=== PATIENT | female | born 1950 | race Caucasian/White ===

== ENCOUNTER 2021-04-21 08:02 | Emergency (ER) | payer MEDICARE, BC ==
[2021-04-21] MEDS ORDERED: Sodium Chloride 0.9% 10 ML Syringe FLUSH PRN (08:39)
[2021-04-21] MEDS ORDERED: Sodium Chloride 0.9% 1,000 ML IV SCH (08:45)
--- NOTE | 2021-04-21 08:46 | EDM.PDOC ---
ED HPI GENERAL MEDICAL PROBLEM - General Chief Complaint: General Stated Complaint: HIGH CALCIUM Time Seen by Provider: 04/21/21 08:15 Source of Information: Reports: Patient, Family History Limitations: Reports: No Limitations - History of Present Illness INITIAL COMMENTS - FREE TEXT/NARRATIVE: The patient presents with an elevated calcium. The patient has a history of multiple myeloma. She has been on chemo and is in remission. She just moved here from [place]. She has some renal problems and was seeing Dr Loco. He did some labs yesterday and her calcium was elevated and she was told to come here and get it checked. She is not sure of how high it was. She has no fever, chills, chest pain, shortness of breath, abdominal pain, nausea or vomiting. She does have some left flank pain. She does have a slight cough. Onset: Gradual Duration: Day(s): Location: Reports: Back Quality: Reports: Sharp Severity: Moderate Improves with: Reports: Immobilization Worsens with: Reports: Movement Context: Denies: Trauma Associated Symptoms: Reports: No Other Symptoms Knee Pain Score (Numeric/FACES): 4 - Related Data Allergies Allergy/AdvReac Type Severity Reaction Status Date / Time No Known Allergies Allergy Verified 04/21/21 08:18 Home Meds: Home Meds Albuterol Sulfate [Albuterol Sulfate HFA] 1 - 2 puff IH Q4H PRN 04/21/21 [History] Allopurinol [Zyloprim] 300 mg PO DAILY 04/21/21 [History] Calcium Carb/Vitamin D3/Vit K1 [Viactiv 650 mg-12.5 Mcg Chew] 1 tab PO DAILY 04/21/21 [History] Calcium Carbonate [Tums] 1 tab PO DAILY PRN 04/21/21 [History] Cholecalciferol (Vitamin D3) [Vitamin D3] 2,000 units PO DAILY 04/21/21 [Hist ory] Ciclesonide [Alvesco] 160 mcg IH DAILY 04/21/21 [History] Cyanocobalamin (Vitamin B-12) [B-12] 1,000 mcg PO BID 04/21/21 [History] Fluticasone Propionate [Flonase Allergy Relief] 1 spray SAPNA DAILY PRN 04/21/21 [History] Furosemide [Lasix] 20 mg PO DAILY PRN 04/21/21 [History] Gabapentin [Neurontin] 400 mg PO TID 04/21/21 [History] Glucos Sul 2Kcl/MSM/Chond/C/Mn [Glucosamine Chondroitin Cap] 1 cap PO BID 04/21/21 [History] Lenalidomide [Revlimid] 15 mg PO ASDIRECTED 04/21/21 [History] Levothyroxine [Synthroid] 100 mcg PO ACBREAKFAST 04/21/21 [History] Montelukast Sodium 10 mg PO DAILY 04/21/21 [History] Multivitamin [Multi-Day Vitamins] 1 tab PO DAILY 04/21/21 [History] Tumeric/Ging/Auxier/Oreg/Capryl [Candicidal Capsule] 1 cap PO DAILY 04/21/21 [History] amLODIPine Besylate [Amlodipine Besylate] 10 mg PO DAILY 04/21/21 [History] atorvaSTATin [Lipitor] 10 mg PO DAILY 04/21/21 [History] Past Medical History Cardiovascular History: Reports: High Cholesterol, Hypertension, Other (See Below) Other Cardiovascular History: edema Respiratory History: Reports: Asthma Musculoskeletal History: Reports: Arthritis Oncologic (Cancer) History: Reports: Other (See Below) Other Oncologic History: multiple myeloma - Past Surgical History GI Surgical History: Reports: Other (See Below) Other GI Surgeries/Procedures: bile duct surgery Social & Family History - Tobacco Use Tobacco Use Status *Q: Never Tobacco User Second Hand Smoke Exposure: No - Recreational Drug Use Recreational Drug Use: No ED ROS GENERAL - Review of Systems Review Of Systems: See Below Constitutional: Reports: No Symptoms HEENT: Reports: No Symptoms Respiratory: Reports: Cough. Denies: Shortness of Breath Cardiovascular: Reports: No Symptoms Endocrine: Reports: No Symptoms GI/Abdominal: Reports: No Symptoms : Reports: No Symptoms Musculoskeletal: Reports: Back Pain (left flank pain) ED EXAM, GENERAL - Physical Exam Exam: See Below Exam Limited By: No Limitations General Appearance: Alert, No Apparent Distress Ears: Normal External Exam Nose: Normal Inspection Head: Atraumatic, Normocephalic Neck: Normal Inspection Respiratory/Chest: No Respiratory Distress, Lungs Clear, Normal Breath Sounds Cardiovascular: Regular Rate, Rhythm, No Edema, No Murmur GI/Abdominal: Soft, Non-Tender, No Organomegaly, No Mass Back Exam: CVA Tenderness (L) Extremities: Normal Inspection Neurological: Alert, Oriented, No Motor/Sensory Deficits Course - Vital Signs Last Recorded V/S: Last Vital Signs Temp 96.9 F 04/21/21 08:14 Pulse 71 04/21/21 08:14 Resp 16 04/21/21 08:14 BP 151/51 H 04/21/21 08:14 Pulse Ox 97 04/21/21 08:14 - Orders/Labs/Meds Orders: Active Orders 24 hr Category Date Time Status Peripheral IV Care [RC] . DIRECTED Care 04/21/21 08:40 Active CALCIUM, IONIZED, SERUM [REF] Stat Lab 04/21/21 11:12 Ordered Sodium Chloride 0.9% [Normal Saline] 1,000 ml Med 04/21/21 08:45 Active IV ASDIRECTED Sodium Chloride 0.9% [Saline Flush] Med 04/21/21 08:39 Active 10 ml FLUSH ASDIRECTED PRN Peripheral IV Insertion Adult [OM.PC] Stat Oth 04/21/21 08:39 Ordered Medication Orders Sodium Chloride (Normal Saline) 1,000 mls @ 125 mls/hr IV ASDIRECTED AMANDEEP Last Infusion: 04/21/21 10:09 Dose: 999 mls/hr Documented by: Admin: 04/21/21 09:26 Dose: 125 mls/hr Documented by: BYRON Sodium Chloride (Sodium Chloride 0.9% 10 Ml Syringe) 10 ml FLUSH ASDIRECTED PRN PRN Reason: Keep Vein Open Last Admin: 04/21/21 09:26 Dose: 10 ml Documented by: BYRON Labs: Laboratory Tests 04/21/21 04/21/21 04/21/21 Range/Units 09:15 09:15 09:20 WBC 3.36 L (3.98-10.04) K/mm3 RBC 2.94 L (3.98-5.22) M/mm3 Hgb 9.6 L (11.2-15.7) gm/dl Hct 30.9 L (34.1-44.9) % MCV 105.1 H (79.4-94.8) fl MCH 32.7 H (25.6-32.2) pg MCHC 31.1 L (32.2-35.5) g/dl RDW Std Deviation 60.8 H (36.4-46.3) fL Plt Count 112 L (182-369) K/mm3 MPV 10.0 (9.4-12.3) fl Neut % (Auto) 46.4 (34.0-71.1) % Lymph % (Auto) 36.0 (19.3-51.7) % Taney % (Auto) 14.3 H (4.7-12.5) % Eos % (Auto) 1.5 (0.7-5.8) Baso % (Auto) 0.3 (0.1-1.2) % Neut # (Auto) 1.56 (1.56-6.13) K/mm3 Lymph # (Auto) 1.21 (1.18-3.74) K/mm3 Taney # (Auto) 0.48 H (0.24-0.36) K/mm3 Eos # (Auto) 0.05 (0.04-0.36) K/mm3 Baso # (Auto) 0.01 (0.01-0.08) K/mm3 Sodium 143 (136-145) mEq/L Potassium 3.9 (3.5-5.1) mEq/L Chloride 105 (98-107) mEq/L Carbon Dioxide 28 (21-32) mEq/L Anion Gap 13.9 (5-15) BUN 29 H (7-18) mg/dL Creatinine 2.2 H (0.55-1.02) mg/dL Est Cr Clr Drug Dosing 19.12 mL/min Estimated GFR (MDRD) 22 (>60) mL/min BUN/Creatinine Ratio 13.2 L (14-18) Glucose 113 H (70-99) mg/dL Calcium 13.3 H* (8.5-10.1) mg/dL Magnesium 1.5 L (1.8-2.4) mg/dL Total Bilirubin 0.5 (0.2-1.0) mg/dL AST 80 H (15-37) U/L ALT 31 (14-59) U/L Alkaline Phosphatase 58 (46-116) U/L Total Protein 9.1 H (6.4-8.2) g/dl Albumin 3.3 L (3.4-5.0) g/dl Globulin 5.8 gm/dL Albumin/Globulin Ratio 0.6 L (1-2) Lipase 59 L (73-393) U/L Urine Color Light yellow (Yellow) Urine Appearance Clear (Clear) Urine pH 7.0 (5.0-8.0) Ur Specific [place] 1.020 (1.005-1.030) Urine Protein 1+ H (Negative) Urine Glucose (UA) Negative (Negative) Urine Ketones Negative (Negative) Urine Occult Blood Trace-lysed H (Negative) Urine Nitrite Negative (Negative) Urine Bilirubin Negative (Negative) Urine Urobilinogen 0.2 (0.2-1.0) Ur Leukocyte Esterase Trace H (Negative) Urine RBC 5-10 H (0-5) /hpf Urine WBC 5-10 H (0-5) /hpf Ur Squamous Epith Cells 0-5 (0-5) /hpf Urine Bacteria Few (FEW) /hpf Urine Mucus Few (FEW) /hpf Meds: Medications Generic Name Dose Route Start Last Admin Trade Name Freq PRN Reason Stop Dose Admin Sodium Chloride 1,000 mls @ 125 mls/hr 04/21/21 08:45 04/21/21 10:09 Normal Saline IV 999 mls/hr ASDIRECTED AMANDEEP Infusion Sodium Chloride 10 ml 04/21/21 08:39 04/21/21 09:26 Sodium Chloride 0.9% 10 Ml Syringe FLUSH 10 ml ASDIRECTED PRN Administration Keep Vein Open - Re-Assessments/Exams Free Text/Narrative Re-Assessment/Exam: 04/21/21 08:45 I ordered an IV NS at 125ml/hr, labs, UA and a CT of her abdomen and pelvis without contrast to look for a kidney stone. 04/21/21 11:[address] of her abdomen and pelvis shows small findings within the right kidney which are believed to be incidental. No renal calculi, ureteral dilatation or ureteral stone is seen. Diverticuli within the transverse, left and sigmoid regions of the colon. No inflammatory change is seen. Minimal increased stool within the colon is noted. No acte abnormality is appreciated on CT study of the abdomen and pelvis. Her WBC was low at 3.36. Her Hgb is low at 9.6. Her creatinine was elevated at 2.2. Her calcium was elevated at 13.3. Her magnesium is low 1.5. Her AST is elevated at 80. Her lipase is low. I gave her 1L of fluid. She has no symptoms of hypercalcemia. I do not feel she needs to be admitted. I did send out an ionized calcium. I will have her stop her tums and viactive which both contain calcium. I will have her follow up with Kriss Larios on Saturday or Saturday to have her calcium rechecked. Departure - Departure Time of Disposition: 11:30 Disposition: Home, Self-Care 01 Condition: Good Clinical Impression: Hypercalcemia, Renal insufficiency Left low back pain Qualifiers: Chronicity: acute Sciatica presence: without sciatica Qualified Code(s): M54.50 - Low back pain, unspecified - Discharge Information *PRESCRIPTION DRUG MONITORING PROGRAM REVIEWED*: Not Applicable *COPY OF PRESCRIPTION DRUG MONITORING REPORT IN PATIENT MITRA: Not Applicable Referrals: Estephania Larios, SCIENCE INSTRUCTOR [Primary Care Provider] - 1 Week Forms: ED Department Discharge Additional Instructions: Drink plenty of fluids. Stop taking the tums and viactive. Both medicines contain calcium. Have your calcium level rechecked on Saturday or Saturday. Please return if you are worse. Sepsis Event Note (ED) - Evaluation Sepsis Screening Result: No Definite Risk - Focused Exam Vital Signs: Vital Signs Temp Pulse Resp BP Pulse Ox 04/21/21 08:14 96.9 F 71 16 151/51 H 97 - My Orders Last 24 Hours: My Active Orders 04/21/21 08:39 Sodium Chloride 0.9% [Saline Flush] 10 ml FLUSH ASDIRECTED PRN Peripheral IV Insertion Adult [OM.PC] Stat 04/21/21 08:40 Peripheral IV Care [RC] . DIRECTED 04/21/21 08:45 Sodium Chloride 0.9% [Normal Saline] 1,000 ml IV ASDIRECTED 04/21/21 11:12 CALCIUM, IONIZED, SERUM [REF] Stat - Assessment/Plan Last 24 Hours: My Active Orders 04/21/21 08:39 Sodium Chloride 0.9% [Saline Flush] 10 ml FLUSH ASDIRECTED PRN Peripheral IV Insertion Adult [OM.PC] Stat 04/21/21 08:40 Peripheral IV Care [RC] . DIRECTED 04/21/21 08:45 Sodium Chloride 0.9% [Normal Saline] 1,000 ml IV ASDIRECTED 04/21/21 11:12 CALCIUM, IONIZED, SERUM [REF] Stat
--- NOTE | 2021-04-21 09:29 | CT ---
CT abdomen and pelvis Technique: Multiple axial sections were obtained from above the dome of the diaphragm inferiorly through the pubic symphysis. Intravenous and oral contrast was not utilized. Study has been performed as a ureteral stone protocol. Comparison: No prior abdominal or pelvic imaging is available. Findings: Right kidney shows a small low density finding off the upper pole measuring 1.5 cm which is likely due to a small cyst. Right kidney also shows a small hyperdense lesion measuring about 5-6 mm within the more lower pole which is most likely due to a small hemorrhagic cyst. Kidneys show no abnormal calcifications. No ureteral dilatation or ureteral stone is seen. Bladder shows no abnormal calcifications. Liver contains no focal parenchymal abnormality. Spleen size is normal. Adrenal glands show no nodule. Gallbladder contains no calcified gallstones. Abdominal aorta shows diffuse atherosclerotic calcification which continues into the iliac vessels with no aneurysm. No retroperitoneal adenopathy or mesenteric abnormalities are seen. No pelvic mass or adenopathy is seen. Slight increased stool is noted within the colon. Diverticuli are seen within the descending, sigmoid regions as well as transverse colon with no inflammatory change being seen. Appendix is felt to be visualized and appears normal in size. Bone window settings were reviewed which shows diffuse degenerative change within the spine. Degenerative change is also seen within the sacroiliac joints. No acute osseous abnormality is appreciated. Impression: 1. Small findings within the right kidney which are believed to be incidental. No renal calculi, ureteral dilatation or ureteral stone is seen. 2. Diverticuli within the transverse, left and sigmoid regions of the colon. No inflammatory change is seen. 3. Minimal increased stool within the colon is noted. 4. No acute abnormality is appreciated on CT study of the abdomen and pelvis. Diagnostic code #2
== END 2021-04-21 11:35 | disposition home or self-care (01) ==
LOC: JD.ED 08:02
DX: M54.50 Low back pain, unspecified (principal); E83.52 Hypercalcemia; N28.9 Disorder of kidney and ureter, unspecified; E78.00 Pure hypercholesterolemia, unspecified; I10 Essential (primary) hypertension; J45.909 Unspecified asthma, uncomplicated; Z79.899 Other long term (current) drug therapy
CPT/HCPCS: 36415; 74176; 80053; 81001; 82330; 83690; 83735; 85025; 99284; J7030

== ENCOUNTER 2024-01-29 14:34 | Emergency (ER) | payer MEDICARE, BC ==
[2024-01-29] MEDS: Enoxaparin 100 MG/1 ML Syringe SUBCUT ONE (17:23)
== END 2024-01-29 17:25 | disposition home or self-care (01) ==
LOC: JD.ED 14:34
DX: I82.411 Acute embolism and thrombosis of right femoral vein (principal); I10 Essential (primary) hypertension; E78.00 Pure hypercholesterolemia, unspecified; E03.9 Hypothyroidism, unspecified; Z90.49 Acquired absence of other specified parts of digestive tract; Z79.899 Other long term (current) drug therapy; Z79.82 Long term (current) use of aspirin; Z79.890 Hormone replacement therapy; Z79.51 Long term (current) use of inhaled steroids
CPT/HCPCS: 96372; 99283; J1650; 99284

== ENCOUNTER 2024-09-21 16:22 | Emergency (ER) | payer MEDICARE, BC ==
[2024-09-21 18:00] LABS: APPEARANCE,URINE CLEAR (Clear); BILIRUBIN,URINE NEGATIVE (Negative); COLOR,URINE YELLOW (Yellow); GLUCOSE,URINE NEGATIVE (Negative); KETONES,URINE NEGATIVE (Negative); LEUKOCYTE ESTERASE,URINE NEGATIVE (Negative); NITRITE,URINE POSITIVE (Negative); OCCULT BLOOD,URINE NEGATIVE (Negative); PROTEIN,URINE 1+ (Negative); UROBILINOGEN,URINE 0.2 (0.2-1.0)
[2024-09-21 19:03] LABS: BACTERIA,URINE MANY /hpf (FEW); RBC,URINE 0-5 /hpf (0-5); WBC,URINE 0-5 /hpf (0-5)
[2024-09-21 19:04] LABS: MUCUS,URINE FEW /hpf (FEW)
== END 2024-09-21 18:30 | disposition home or self-care (01) ==
LOC: JD.ED 16:22
DX: S80.01XA Contusion of right knee, initial encounter (principal); S80.11XA Contusion of right lower leg, initial encounter; I10 Essential (primary) hypertension; J45.909 Unspecified asthma, uncomplicated; E78.00 Pure hypercholesterolemia, unspecified; M19.90 Unspecified osteoarthritis, unspecified site; Z90.49 Acquired absence of other specified parts of digestive tract; Z79.899 Other long term (current) drug therapy; W18.30XA Fall on same level, unspecified, initial encounter
CPT/HCPCS: 70450; 70450-26; 73590-26-RT; 73590-RT; 81001; 99284